=== PATIENT | female | born 1960 | race Caucasian/White ===

== ENCOUNTER 2017-05-04 09:49 | Emergency (ER) | payer OTHER, BC ==
[2017-05-04 10:20] LABS: #Basophils 0.1 thou/uL (0.0-0.2); #Eosinphils 0.3 thou/uL (0.0-0.7); #Lymphocytes 2.2 thou/uL (1.20-3.40); #Monocytes 0.4 thou/uL (0.11-0.59); #Neutrophils 3.6 thou/uL (1.40-6.50); %Basophils 0.9 % (0.0-1.0); %Eosinophils 4.8 % (0.0-10.0); %Lymphocytes 33.8 % (21.0-51.0); %Monocytes 5.9 % (0.0-10.0); Hematocrit 39.8 % (36.0-47.0); Mean Platelet Volume 7.5 fL (7.4-10.4); Red Blood Cell (RBC) Count 4.14 mill/uL (4.20-5.40); White Blood Cell (WBC) Count 6.6 thou/uL (4.8-10.8)
[2017-05-04 10:41] LABS: ALT (SGPT) 29 U/L (8-55); AST (SGOT) 22 U/L (5-34); Alkaline Phosphatase 80 U/L (40-150); Anion Gap 18 mmol/L (10-20); BUN (Urea Nitrogen) 10 mg/dL (9.8-20.1); Bilirubin, Total 0.5 mg/dL (0.2-1.2); Calc. Creatinine Clearance 0 mL/min (70-130); Calcium 9.1 mg/dL (7.8-10.44); Carbon Dioxide 21 mmol/L (22-29); Chloride 105 mmol/L (98-107); Estimated GFR-MDRD 90; Protein, Total 6.9 g/dL (6.0-8.3)
--- NOTE | 2017-05-04 11:49 | RAD ---
SINGLE VIEW OF THE CHEST: COMPARISON: None. HISTORY: Syncope. The patient hit head on a shelf at work. FINDINGS: Single view of the chest shows a normal sized cardiomediastinal silhouette. There is no evidence of consolidation, mass, or pleural effusion. The bones are unremarkable. IMPRESSION: No evidence of acute cardiopulmonary disease. POS: [facility]
--- NOTE | 2017-05-04 12:31 | CT ---
BRAIN CT WITHOUT IV CONTRAST: HISTORY: A 56-year-old female with a history of hypertension, diabetes, and high cholesterol. Hit her head w ith diffuse headache and vomiting. FINDINGS: No focal mass or midline shift. No intra- or extraaxial hemorrhage. Sinuses and mastoids are clear . IMPRESSION: No acute intracranial process. No mass or bleed. POS: [facility]
--- NOTE | 2017-05-04 13:32 | RAD ---
LEFT SHOULDER THREE VIEWS: 05/04/17 HISTORY: 56-year-old female with left shoulder pain after passing out. IMPRESSION: Mild degenerative changes. No fracture, dislocation, or other acute process. POS: [facility]
== END 2017-05-04 12:35 | disposition home or self-care (01) ==
LOC: ERS 09:49
DX: S06.9X0A Unspecified intracranial injury without loss of consciousness, initial encounter (principal); E11.9 Type 2 diabetes mellitus without complications; K21.9 Gastro-esophageal reflux disease without esophagitis; M25.512 Pain in left shoulder; E78.5 Hyperlipidemia, unspecified; I10 Essential (primary) hypertension; W22.03XA Walked into furniture, initial encounter
CPT/HCPCS: 36415; 70450; 71010; 80053; 85025; 93005; 96360; 96361

== ENCOUNTER 2018-08-22 08:21 | Outpatient (CLI) | payer BC ==
--- NOTE | 2018-08-22 09:28 | RAD ---
RIGHT SHOULDER THREE VIEWS: HISTORY: Right shoulder pain for six months. FINDINGS: Three views of the right shoulder show no evidence of acute fracture or dislocation. No degenerative changes are seen. There is a large subacromial spur. The visualized inferior thorax is unremarkabl e. IMPRESSION: Large subacromial spur. POS: [facility]
--- NOTE | 2018-08-22 09:29 | RAD ---
LEFT SHOULDER THREE VIEWS: HISTORY: Left shoulder pain for six months. COMPARISON: None. FINDINGS: Three views of the left shoulder show no evidence of acute fracture or dislocation. A small subacrom ial spur is seen. No degenerative changes are present. IMPRESSION: Small left subacromial spur. POS: [facility]
== END 2018-08-22 08:22 | disposition home or self-care (01) ==
LOC: SCSRAD 08:21
PROVIDERS: ATTEND Family Medicine
DX: M25.511 Pain in right shoulder (principal); M25.512 Pain in left shoulder; M75.92 Shoulder lesion, unspecified, left shoulder; M75.91 Shoulder lesion, unspecified, right shoulder

== ENCOUNTER 2018-09-17 08:42 | Outpatient (CLI) | payer BC ==
--- NOTE | 2018-09-17 12:26 | MRI ---
FNoncontrast enhanced MRI images cervical spine HISTORY: Bilateral shoulder and on pain for 6 months. There is a small area of ill-defined central spinal cord signal abnormality at the C4-5 cord level. F indings compatible with myelomalacia. C1-2: Unremarkable. C2-3: No significant degree of central or neural foraminal narrowing seen. C3-4: There is a broad-based disc osteophyte complex centrally compressing the thecal sac resulting i n mild thecal sac compression. The neural foramen are patent. C4-5: Disc desiccation is seen. There is a broad-based disc osteophyte complex centrally compressing the thecal sac resulting in moderate to severe thecal sac and moderate cord compression. Some myeloma lacic changes seen in the spinal cord at this level. There is severe bilateral C4-5 neural foraminal narrowing due to uncal vertebral hypertrophy. C5-6: Disc desiccation is seen. There is a broad-based disc osteophyte complex centrally and in the r ight paracentral region compressing the thecal sac resulting in thecal sac and cord compression. Ther e is moderate to severe right and moderate left-sided C5-6 neural foraminal narrowing due to osteophy te encroachment. C6-C7: Disc desiccation seen. There is a broad-based disc osteophyte complex centrally compressing th e thecal sac resulting in moderate thecal sac compression. Moderate to severe bilateral C6-7 neural f oraminal narrowing is seen due to uncal vertebral osteophyte hypertrophy C7-T1: Unremarkable. IMPRESSION: Multilevel central and neural foraminal narrowing as described above. The most significan t levels of stenosis appear to be C4-5 and C5-C6 with thecal sac and cord compression and bilateral neural foraminal narrowing. Transcribed Date/Time: 09/17/2018 12:26 PM
== END 2018-09-17 08:43 | disposition home or self-care (01) ==
LOC: SCSMRI 08:42
PROVIDERS: ATTEND Orthopaedic Surgery
DX: M50.30 Other cervical disc degeneration, unspecified cervical region (principal); M54.12 Radiculopathy, cervical region; M48.02 Spinal stenosis, cervical region
CPT/HCPCS: 72141

== ENCOUNTER 2018-10-08 12:36 | Outpatient (CLI) | payer BC ==
--- NOTE | 2018-10-08 13:11 | RAD ---
EXAM: 5 views of the cervical spine HISTORY: Bilateral finger numbness for a year and neck pain COMPARISON: MRI cervical spine 09/17/2018 FINDINGS: AP, lateral, flexion/extension, and open mouth odontoid views of the cervical spine shows n ormal height and alignment of the vertebral bodies without fracture or subluxation. The intervertebral discs are narrowed from C4/5 through C6/7 with large anterior osteophytes. Alignment i s unchanged with flexion and extension. No prevertebral soft tissue swelling is seen. IMPRESSION: Degenerative changes of the cervical spine without change with bending.
--- NOTE | 2018-10-08 13:57 | CT ---
EXAM: CT cervical spine PROVIDED CLINICAL HISTORY: Bilateral finger numbness for one year with pain in bilateral shoulders. Cervical radiculopathy. TECHNIQUE: Contiguous axial CT images are obtained through the cervical spine from the skull base to the level o f the T2 vertebral body. Sagittal and coronal reformatted images are provided. COMPARISON: MRI cervical spine 09/17/2018 FINDINGS: No fracture or subluxation is seen. There is straightening of the normal cervical lordotic curvature. Multilevel degenerative changes are seen throughout cervical spine better characterized on MRI on 09/17/2018. There is narrowing of the intervertebral disc spaces with posterior osteophyte formation seen at the C4-5, C5-6, and C6-7 level s with narrowing of the central spinal canal at these levels. Moderate to severe degrees of neural foraminal narrowing are also present at these levels. No prevertebral soft tissue swelling apparent. Visualized lung apices appear clear. IMPRESSION: Multilevel degenerative changes greatest at the C4-5, C5-C6, C6-7 levels, and these findings were als o seen on MRI exam on 09/17/2018.
== END 2018-10-08 12:37 | disposition home or self-care (01) ==
LOC: TBSIIMAG 12:36
PROVIDERS: ATTEND Surgery
DX: M47.22 Other spondylosis with radiculopathy, cervical region (principal)
CPT/HCPCS: 72050; 72125

== ENCOUNTER 2019-02-20 07:11 | Outpatient (CLI) | payer BC ==
[2019-02-20 12:18] LABS: PTT 25.2 SEC (22.9-36.1); Prothrombin Time 13.6 SEC (12.0-14.7)
[2019-02-20 12:23] LABS: Mean Corpuscular Volume 94.2 fL (78.0-98.0); Mean Platelet Volume 8.7 fL (7.4-10.4); Platelet Count 229 thou/uL (130-400); RBC Distribution Width 11.8 % (11.5-14.5); Red Blood Cell (RBC) Count 4.06 mill/uL (4.20-5.40); White Blood Cell (WBC) Count 7.2 thou/uL (4.8-10.8)
[2019-02-20 12:28] LABS: Anion Gap 13 mmol/L (10-20); BUN (Urea Nitrogen) 17 mg/dL (9.8-20.1); Calc. Creatinine Clearance 0 mL/min (70-130); Calcium 9.1 mg/dL (7.8-10.44); Carbon Dioxide 25 mmol/L (22-29); Chloride 106 mmol/L (98-107); Estimated GFR-MDRD 79; Glucose 80 mg/dL (70-105); Potassium 3.9 mmol/L (3.5-5.1); Sodium 140 mmol/L (136-145)
== END 2019-02-20 07:12 | disposition home or self-care (01) ==
LOC: LABBT 07:11
PROVIDERS: ATTEND Surgery
DX: Z01.818 Encounter for other preprocedural examination (principal); M47.12 Other spondylosis with myelopathy, cervical region
CPT/HCPCS: 80048; 85027; 85610; 85730; 93005; 93010

== ENCOUNTER 2019-02-24 05:49 | Inpatient (IN) | payer BC ==
[2019-02-20 11:24] VITALS: BMI 29.8
[2019-02-24] MEDS ORDERED: Sodium Chloride 0.9% 20 ML ONE (06:33)
[2019-02-24] MEDS ORDERED: Thrombin 5000 UNITS/5 ML VIAL ONE ×2 (06:33→11:02)
[2019-02-24] MEDS ORDERED: Bacitracin Zinc Ointment 30 gm TUBE ONE ×2 (06:33→06:55)
[2019-02-24] MEDS ORDERED: Fentanyl 100 MCG/2 ML VIAL ONE ×2 (06:48→13:50)
[2019-02-24] MEDS ORDERED: Ketamine 50 MG/ML (10ML VIAL) ONE (07:00)
[2019-02-24] MEDS ORDERED: HYDROmorphone 2 MG/ML VIAL ONE (07:50)
[2019-02-24] MEDS ORDERED: Ondansetron PF 4 MG/2 ML Vial ONE ×3 (08:10→17:53)
[2019-02-24] MEDS ORDERED: Phenylephrine HCL 10 MG/ML VIAL ONE (09:09)
[2019-02-24] MEDS ORDERED: Rocuronium Bromide 50 MG/5 ML VIAL ONE (10:38)
[2019-02-24] MEDS ORDERED: CEFAZOLIN 1 GM VIAL ONE (12:01)
[2019-02-24] MEDS ORDERED: traMADol HCl 50 MG TAB PO PRN (13:20)
[2019-02-24] MEDS ORDERED: Morphine 2 MG/ML SYRINGE SLOW IVP PRN (13:20)
[2019-02-24] MEDS ORDERED: Acetaminophen/Codeine 30-300mg Tablet PO PRN (13:20)
[2019-02-24] MEDS ORDERED: Acetaminophen 325 MG TAB PO PRN (13:20)
[2019-02-24] MEDS ORDERED: Promethazine HCl 25 MG/ML VIAL SLOW IVP PRN (13:23)
[2019-02-24] MEDS ORDERED: Ondansetron HCl/PF 4 MG/2 ML Vial IVP PRN (13:23)
[2019-02-24] MEDS ORDERED: HYDROmorphone 2 MG/ML VIAL SLOW IVP PRN (13:23)
[2019-02-24] MEDS ORDERED: Meperidine HCl/PF 25 MG/ML VIAL SLOW IVP PRN (13:23)
--- NOTE | 2019-02-24 13:48 | OP ---
DATE OF PROCEDURE: 02/24/2019 LOCATION: OR 12. WOUND CLASSIFICATION: Type 1 wound. STRATEGIC PARTNER DEVELOPMENT MANAGER: Jayce Zavala PA-C. 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 PROCEDURE PERFORMED: 1. Anterior C4-C5, C5-C6, C6-C7 diskectomies for decompression of the neural elements, placement of interbody spacer packed with local bone autograft obtained with same incision and allograft. 2. Anterior cervical plate and screw fixation, C4, C5, C6, and C7. 3. Use of operative microscope for microdissection. 4. C4, C5, C6, C7 laminectomies, partial facetectomies, and foraminotomies. 5. Posterior cervical C4, C5, C6, C7 lateral mass screw franco fixation. 6. Arthrodesis, posterolateral, C4, C5, C6, C7 with use of local bone autograft obtained with same incision allograft, autograft. DESCRIPTION OF PROCEDURE: After informed consent was obtained from the patient, the patient was brought to the OR. Proper patient, pause, and identification was carried out. She was placed under excellent general endotracheal anesthesia and positioned supine on the OR table. All appropriate points were padded. We identified the right anterior oblique lisa to allow for approach at C4, C5, C6, and C7 segment. This region was sterilely cleansed, prepared, and draped. Proper patient, pause, and identification were carried out. The wound was then opened with a combination of sharp, monopolar, and blunt dissection, proceeded lateral to the tracheoesophageal bundle, medial to the right carotid sheath. We identified the prevertebral layer of deep cervical fascia and the longus colli muscles. The localization then confirmed our area of interest. We then performed distraction at C4-C5. Microscope was brought in for microdissection. C4-C5 diskectomy was performed for decompression for neural elements. We then prepared the endplates with an interbody spacer and packed with graft, was placed at C4-C5. This was repeated at C5-C6, C6-C7 as well and the microscope was then removed. Anterior cervical plate and screw fixation were then occurred at C4, C5, C6, and C7 with final tightening. The wound was copiously irrigated and closed in anatomic layers. Following meticulous hemostasis, the wound over drain. The patient then was flipped prone following placement of Pierre Raegan site head. Cervical incision at C4, C5, C6, C7 was drawn out. Posteriorly, this region was sterilely cleansed, prepared, and draped. Proper patient, pause, and identification were carried out. The wound was then opened with a combination of sharp, monopolar, and blunt dissection. The C4, C5, C6, and C7 dorsal spines and lamina were exposed. Localization film confirmed our area of interest and performed C4, C5, C6, and C7 laminectomies, partial facetectomies, and foraminotomies with excellent decompression of common dural tube and nerve roots. We then placed screws in lateral masses at C4, C5, C6, and C7 segments. I now was pleased with our construct and alignment. Final tightening then occurred over rods. Copious irrigation occurred throughout. Decortication of posterolateral regions occurred for arthrodesis. We then packed graft in the posterolateral regions to initiate arthrodesis. The wound was copiously irrigated and closed in anatomic layers following hemostasis with placement of vancomycin powder. The patient was then emerged from anesthesia. Job ID: [id number]
[2019-02-24] MEDS ORDERED: HYDROmorphone 0.5 MG/0.5 ML SYRINGE ONE (14:09)
[2019-02-24] MEDS ORDERED: Lisinopril/Hydrochlorothiazide 20 mg/12.5 mg Tablet PO SCH (15:00)
[2019-02-24] MEDS: Sodium Chloride 0.9% 1,000 ML IV SCH (16:09)
[2019-02-24] MEDS: HYDROcodone/Acetaminophen 7.5/325 mg Tablet PO PRN ×2 (17:42→22:18)
[2019-02-24] MEDS ORDERED: Glycopyrrolate 0.2 MG/ML 5 ML SYRINGE ONE (17:53)
[2019-02-24] MEDS ORDERED: diphenhydrAMINE 50 MG/ML VIAL ONE (17:53)
[2019-02-24] MEDS ORDERED: Lidocaine 2% PF 5 ML VIAL ONE (17:53)
[2019-02-24] MEDS ORDERED: Dexamethasone 20 MG/5 ML VIAL ONE (17:53)
[2019-02-24] MEDS ORDERED: Ketorolac Tromethamine 30 MG/ML VIAL ONE (17:53)
[2019-02-24] MEDS ORDERED: ePHEDrine 50 MG/ML VIAL ONE (17:53)
[2019-02-24] MEDS ORDERED: PROPOFOL 200 MG/20 ML VIAL ONE (17:53)
[2019-02-24] MEDS ORDERED: PHENYLEPHRINE-NS 100 MCG/ML 10 ML SYRINGE ONE (17:53)
[2019-02-24] MEDS ORDERED: Rocuronium Bromide 10 MG/ML (10ML VIAL) ONE (17:53)
[2019-02-24] MEDS: Ondansetron PF 4 MG/2 ML Vial IVP PRN (18:30)
[2019-02-24] MEDS: Gabapentin 400 MG CAP PO SCH (20:05)
[2019-02-24] MEDS: CEFAZOLIN 2 GM in Premix Bag 1 BAG IVPB SCH (20:05)
[2019-02-24] MEDS: Atorvastatin Calcium 10 MG TAB PO SCH (20:05)
[2019-02-24] MEDS ORDERED: CEPHALEXIN PO SCH (21:00)
[2019-02-24] MEDS: tiZANidine HCl 4 MG TAB PO PRN (22:18)
[2019-02-25] MEDS: Sodium Chloride 0.9% 1,000 ML IV SCH ×2 (03:54→16:51)
[2019-02-25] MEDS: CEFAZOLIN 2 GM in Premix Bag 1 BAG IVPB SCH ×3 (04:41→20:11)
[2019-02-25] MEDS: HYDROcodone/Acetaminophen 7.5/325 mg Tablet PO PRN ×5 (04:46→23:42)
[2019-02-25 05:41] LABS: #Lymphocytes 2.3 thou/uL (1.20-3.40); #Monocytes 1.1 thou/uL (0.11-0.59); %Eosinophils 0.1 % (0.0-10.0); %Lymphocytes 22.1 % (21.0-51.0); %Monocytes 10.8 % (0.0-10.0); Hemoglobin 10.4 g/dL (12.0-16.0); Mean Corpuscular HGB CONC 33.4 g/dL (32.0-36.0); Mean Corpuscular Hemoglobin 31.8 pg (27.0-31.0); Mean Corpuscular Volume 95.1 fL (78.0-98.0); Mean Platelet Volume 8.7 fL (7.4-10.4); Platelet Count 204 thou/uL (130-400); RBC Distribution Width 11.8 % (11.5-14.5); Red Blood Cell (RBC) Count 3.26 mill/uL (4.20-5.40); White Blood Cell (WBC) Count 10.4 thou/uL (4.8-10.8)
[2019-02-25 06:02] LABS: Anion Gap 12 mmol/L (10-20); BUN (Urea Nitrogen) 14 mg/dL (9.8-20.1); Calc. Creatinine Clearance 104 mL/min (70-130); Calcium 8.4 mg/dL (7.8-10.44); Carbon Dioxide 27 mmol/L (22-29); Chloride 103 mmol/L (98-107); Estimated GFR-MDRD 87; Glucose 108 mg/dL (70-105); Potassium 3.8 mmol/L (3.5-5.1); Sodium 138 mmol/L (136-145)
[2019-02-25] MEDS: metFORMIN 500 MG TAB PO SCH (08:49)
--- NOTE | 2019-02-25 10:14 | PRG ---
DATE OF SERVICE: 02/25/2019 Ms. Hood is postoperative day 1 from anterior-posterior decompression and fusion. She is having different paresthesias in her hands and feet, but she states she feels her upper and lower extremities are "waking up." She is doing well. She needs a better fitting collar. She has had 20 mL output overnight, and we will plan to mobilize her. Job ID: [id number]
[2019-02-25] MEDS: Ondansetron PF 4 MG/2 ML Vial IVP PRN (12:42)
[2019-02-25] MEDS: tiZANidine HCl 4 MG TAB PO PRN (14:35)
[2019-02-25] MEDS: Atorvastatin Calcium 10 MG TAB PO SCH (20:12)
[2019-02-25] MEDS: Gabapentin 400 MG CAP PO SCH (20:12)
[2019-02-26] MEDS: CEFAZOLIN 2 GM in Premix Bag 1 BAG IVPB SCH ×2 (04:02→12:23)
[2019-02-26] MEDS: Sodium Chloride 0.9% 1,000 ML IV SCH ×2 (07:00→18:14)
[2019-02-26] MEDS: HYDROcodone/Acetaminophen 7.5/325 mg Tablet PO PRN ×4 (08:21→20:25)
[2019-02-26] MEDS: metFORMIN 500 MG TAB PO SCH (08:21)
--- NOTE | 2019-02-26 10:08 | PRG ---
DATE OF SERVICE: 02/26/2019 This is Jayce Zavala PA-C dictating a report for Clive Garcia MD. This is postoperative recheck. Ms. Hood is postoperative day #2, having undergone anterior cervical diskectomy and fusion and posterior cervical laminectomies and fusion. The patient complains of significant posterior neck pain today. She has been up walking. She does not complain much in the way of arm pain, and states she does feel more steady on her feet, when she can get out of bed secondary to posterior neck pain. We will work on pain control for her today. I have also discussed her case with Inpatient Rehab and she will likely do well there. I have updated her family at bedside. Her drain output was 5 mL. We will leave this in likely until tomorrow. She may be without her collar when she is in bed, and I have asked that come see her for a better fitting of [place] collar, though she does have a better fitting one currently, placed by the nurse. I would like her to remain on a full liquid diet. She remains with good strength in all the extremities and she is able to get herself from lying to sitting while in bed. Please call with any changes in the patient's neurologic status. Otherwise, the patient is progressing as expected. Job ID: [id number]
[2019-02-26 14:03] LABS: Bilirubin Negative (Negative); Blood, Urine Negative (Negative); Clarity Clear (Clear); Glucose, Urine (Dipstick) Normal (Negative); Leukocyte Negative Leu/uL (Negative); Nitrite Negative (Negative); Protein, Urine (Dipstick) Negative (Neg-Trace); Urobilinogen Normal mg/dL (Less than 2)
[2019-02-26] MEDS ORDERED: Ondansetron ODT 4 MG TAB PO PRN (15:10)
[2019-02-26] MEDS: Gabapentin 400 MG CAP PO SCH (20:26)
[2019-02-26] MEDS: Atorvastatin Calcium 10 MG TAB PO SCH (20:26)
[2019-02-26] MEDS: Cephalexin 250 MG CAP PO SCH (20:26)
[2019-02-27] MEDS: HYDROcodone/Acetaminophen 7.5/325 mg Tablet PO PRN ×3 (01:50→10:22)
[2019-02-27] MEDS: Cephalexin 250 MG CAP PO SCH ×2 (01:50→09:25)
[2019-02-27] MEDS ORDERED: Lisinopril/Hydrochlorothiazide 20 mg/12.5 mg Tablet PO SCH (09:00)
[2019-02-27 09:02] VITALS: BP 124/81; TEMP 98.2
[2019-02-27] MEDS: metFORMIN 500 MG TAB PO SCH (09:26)
[2019-02-27] MEDS: tiZANidine HCl 4 MG TAB PO PRN (09:26)
--- NOTE | 2019-02-27 11:18 | PRG ---
DATE OF SERVICE: 02/27/2019 Ms. Hood is 3 days out from anterior-posterior multilevel decompression fusion. She has had improvement in her myelopathy. She is mobilizing. She is using a walker. Her drain has been removed and her wounds are healing well. We went over both intra and postoperative issues. Neurologically, she is at her preoperative baseline, if not improved with her fine motor dexterity and hand intrinsic icer machine strength. She will be dismissed today. Job ID: [id number]
== END 2019-02-27 10:35 | disposition home or self-care (01) | DRG 454 ==
LOC: SDC 05:49 → SURG B 13:31
PROVIDERS: ADMIT Surgery; ATTEND Surgery
PROC: 0RG20A0 Fusion of 2 or more Cervical Vertebral Joints with Interbody Fusion Device, Anterior Approach, Anterior Column, Open Approach (ICD-10-PCS; principal; 2019-02-24)
PROC: 0RG2071 Fusion of 2 or more Cervical Vertebral Joints with Autologous Tissue Substitute, Posterior Approach, Posterior Column, Open Approach (ICD-10-PCS; 2019-02-24)
PROC: 0RB30ZZ Excision of Cervical Vertebral Disc, Open Approach (ICD-10-PCS; 2019-02-24)
DX: M48.02 Spinal stenosis, cervical region (principal); M47.12 Other spondylosis with myelopathy, cervical region
CPT/HCPCS: 36415; 76000; 80048; 81001; 81003; 85025; 87086; C1713; C1768; C1776; J0131; J0690; J1100; J1170; J1200; J1885; J2001; J2270; J2370; J2405; J2704; J3010; J3370; J3490; Q0162

== ENCOUNTER 2019-04-08 12:57 | Outpatient (CLI) | payer BC ==
--- NOTE | 2019-04-08 13:40 | RAD ---
CERVICAL SPINE SIX VIEWS: 04/08/2019 HISTORY: Evaluate cervical spine following surgery. FINDINGS: Open mouth odontoid view demonstrates a normal appearing dens and C1-C2 articulation. There is anteri or and posterior fusion hardware present. Hardware includes anterior diskectomy and fusion hardware a t C4-C5, C5-C6, and C6-C7. There is also posterior fusion hardware with bilateral C4, C5, C6 and C7 p edicle screws and vertically oriented interlocking rods. The neutral lateral examination demonstrates mild anterolisthesis of C3 on C4, measuring approximately 2-3 mm. This anterolisthesis of C3 on C4 m easures approximately 4 mm with flexion and is not seen on extension. Bilateral laminectomy changes a re present at the C4, C5 and C6 levels. IMPRESSION: Multilevel postoperative change within the cervical spine, as detailed above. There is mild anterolis thesis at C3-C4, most prominent upon flexion. POS: [facility]
== END 2019-04-08 12:58 | disposition home or self-care (01) ==
LOC: TBSIIMAG 12:57
PROVIDERS: ATTEND Surgery
DX: M48.02 Spinal stenosis, cervical region (principal); M43.12 Spondylolisthesis, cervical region; Z98.890 Other specified postprocedural states
CPT/HCPCS: 72050

== ENCOUNTER 2019-12-18 07:23 | Outpatient (CLI) | payer BC ==
[2019-12-18] MEDS ORDERED: ADENOSINE 60 MG/20 ML VIAL ONE (09:54)
--- NOTE | 2019-12-18 11:23 | NM ---
EXAM: CARDIAC SPECT HISTORY: Syncope and collapse. Tachycardia. Hypertension, diabetes and hypercholesterolemia, palpitat ions TECHNIQUE: A myocardial perfusion scan was performed using the single isotope 1 day protocol with khoi hnetium 99m sestamibi. [10 mCi] was injected intravenously for the rest exam followed by 30 mCi for the stress study. Pharmacologic stress with adenosine was monitored and interpreted by Akiko Vang, nurse practitioner FINDINGS: Homogeneous tracer distribution is seen in the myocardial segments on stress and rest image s without fixed or reversible defects. Gated SPECT LVEF: 59% Wall motion exam: Normal IMPRESSION: Normal myocardial perfusion scan
== END 2019-12-18 07:24 | disposition home or self-care (01) ==
LOC: NM 07:23
PROVIDERS: ATTEND Family Medicine
DX: R55 Syncope and collapse (principal); R00.0 Tachycardia, unspecified
CPT/HCPCS: 78452; 93017; A9500; J0153

== ENCOUNTER 2022-12-12 12:19 | Outpatient (CLI) | payer BC | END 2022-12-12 12:20 | disposition home or self-care (01) | LOC: SCSMRI 12:19 | PROVIDERS: ATTEND Family Medicine | DX: G45.9 Transient cerebral ischemic attack, unspecified (principal) | CPT/HCPCS: 70551 ==

== ENCOUNTER 2023-01-02 12:58 | Outpatient (CLI) | payer BC | END 2023-01-02 12:59 | disposition home or self-care (01) | PROVIDERS: ATTEND Family Medicine | DX: R00.0 Tachycardia, unspecified (principal) | CPT/HCPCS: 93225; 93226 ==

== ENCOUNTER 2023-04-01 13:30 | Outpatient (CLI) | payer BC | END 2023-04-01 13:31 | disposition home or self-care (01) | LOC: ULT 13:30 | PROVIDERS: ATTEND Psychiatry & Neurology Neurology | DX: G45.9 Transient cerebral ischemic attack, unspecified (principal); I08.1 Rheumatic disorders of both mitral and tricuspid valves | CPT/HCPCS: 93306; 93880 ==

== ENCOUNTER 2024-04-01 22:19 | Emergency (ER) | payer BC ==
[~2024-04-01 22:19] MED LIST: Iopamidol-370 76% 500 ML MDV (1 ML CHARGE) ONE
[2024-04-01] MEDS ORDERED: Boostrix 0.5 ML (Tdap) VIAL (>/=7 yrs of age) ONE (22:56)
[2024-04-01 22:59] LABS: #Basophils Less than 0.03 10x3/uL (0.0-0.2); %Basophils 0.2 % (0.0-1.0); %Eosinophils 3.1 % (0.0-10.0); %Lymphocytes 29.9 % (21.0-51.0); %Monocytes 7.2 % (0.0-10.0); %Neutrophils 59.1 % (42.0-75.0); Hemoglobin 10.6 g/dL (12.0-16.0); Mean Corpuscular HGB CONC 33.1 g/dL (32.0-36.0); Mean Corpuscular Hemoglobin 30.1 pg (27.0-31.0); Mean Corpuscular Volume 90.9 fL (78.0-98.0); Mean Platelet Volume 9.6 fL (7.4-10.4); Platelet Count 219 10x3/uL (130-400); RBC Distribution Width 13.8 % (11.5-14.5); Red Blood Cell (RBC) Count 3.52 mill/uL (4.20-5.40)
[2024-04-01] MEDS ORDERED: fentaNYL 50 mcg/mL 1 mL Vial ONE (23:01)
[2024-04-01 23:14] LABS: ALT (SGPT) 32 U/L (8-55); AST (SGOT) 36 U/L (5-34); Albumin 1.9 g/dL (3.4-4.8); Alkaline Phosphatase 90 U/L (40-110); Anion Gap 9 mmol/L (10-20); BUN (Urea Nitrogen) 15 mg/dL (9.8-20.1); Bilirubin, Total 0.4 mg/dL (0.2-1.2); Calc. Creatinine Clearance 0 mL/min (70-130); Calcium 7.4 mg/dL (7.8-10.44); Carbon Dioxide 24 mmol/L (23-31); Chloride 105 mmol/L (98-107); Estimated GFR 94; Globulin 2.3 g/dL (2.4-3.5); Glucose 101 mg/dL (80-115); Potassium 3.6 mmol/L (3.5-5.1); Protein, Total 4.2 g/dL (5.8-8.1); Sodium 134 mmol/L (136-145)
[2024-04-01 23:18] LABS: PTT 26.4 sec (22.9-36.1)
[2024-04-01 23:19] LABS: INR-International Normal Ratio 1.2; Prothrombin Time 15.1 sec (12.0-14.7)
[2024-04-01] MEDS ORDERED: Lidocaine 1% w/Epinephrine 1:100K 20 ML VIAL ONE (23:42)
[2024-04-02] MEDS ORDERED: Lidocaine 1% PF 5 ML VIAL ONE ×2 (00:16→00:18)
[2024-04-02] MEDS ORDERED: fentaNYL 50 mcg/mL 1 mL Vial ONE (00:29)
== END 2024-04-02 02:23 | disposition home or self-care (01) ==
LOC: ERS 22:19
DX: S62.612A Displaced fracture of proximal phalanx of right middle finger, initial encounter for closed fracture (principal); S62.614A Displaced fracture of proximal phalanx of right ring finger, initial encounter for closed fracture; S01.411A Laceration without foreign body of right cheek and temporomandibular area, initial encounter; M25.561 Pain in right knee; Z23 Encounter for immunization; V40.5XXA Car driver injured in collision with pedestrian or animal in traffic accident, initial encounter
CPT/HCPCS: 36415; 70450; 70486; 71260; 72125; 74177; 80053; 85025; 85610; 85730; 90471; 90715; 96374; 96376; G0390; J3010; Q9967

== ENCOUNTER 2024-04-22 12:33 | Inpatient (IN) | payer BC ==
[2024-04-22] MEDS ORDERED: Famotidine/PF 20 mg/2ml Vial ONE (13:55)
[2024-04-22] MEDS ORDERED: Bacitracin Zinc Ointment 30 gm TUBE ONE (14:00)
[2024-04-22] MEDS ORDERED: Bupivacaine PF 0.5% 30 ML VIAL ONE (14:00)
[2024-04-22 14:01] LABS: #Basophils 0.05 10x3/uL (0.0-0.2); %Basophils 0.3 % (0.0-1.0); %Eosinophils 1.2 % (0.0-10.0); %Lymphocytes 14.6 % (21.0-51.0); %Neutrophils 78.2 % (42.0-75.0); Hematocrit 36.7 % (36.0-47.0); Hemoglobin 12.6 g/dL (12.0-16.0); Mean Corpuscular HGB CONC 34.3 g/dL (32.0-36.0); Mean Corpuscular Hemoglobin 29.8 pg (27.0-31.0); Mean Corpuscular Volume 86.8 fL (78.0-98.0); Mean Platelet Volume 9.6 fL (7.4-10.4); Platelet Count 437 10x3/uL (130-400); RBC Distribution Width 15.8 % (11.5-14.5); Red Blood Cell (RBC) Count 4.23 mill/uL (4.20-5.40)
[2024-04-22] MEDS ORDERED: Rocuronium Bromide 10 MG/ML (10ML VIAL) ONE (14:07)
[2024-04-22] MEDS ORDERED: Midazolam HCl 2 mg/2 ml Vial ONE (14:07)
[2024-04-22] MEDS ORDERED: fentaNYL PF 100 MCG/2 ML SYRINGE ONE (14:07)
[2024-04-22] MEDS ORDERED: Lidocaine 1% PF 5 ML VIAL ONE (14:07)
[2024-04-22] MEDS ORDERED: PROPOFOL 0 ML ONE (14:07)
[2024-04-22] MEDS ORDERED: CEFAZOLIN 2 GM VIAL ONE (14:08)
[2024-04-22 14:58] LABS: Anion Gap 14 mmol/L (10-20); BUN (Urea Nitrogen) 9 mg/dL (9.8-20.1); Calc. Creatinine Clearance 0 mL/min (70-130); Calcium 8.2 mg/dL (7.8-10.44); Carbon Dioxide 24 mmol/L (23-31); Chloride 98 mmol/L (98-107); Estimated GFR 95; Glucose 105 mg/dL (80-115); Potassium 2.9 mmol/L (3.5-5.1); Sodium 133 mmol/L (136-145)
[2024-04-22 15:13] LABS: Bilirubin Negative (Negative); Blood, Urine Negative (Negative); Clarity Clear (Clear); Glucose, Urine (Dipstick) Normal (Negative); Ketone, Urine Negative (Negative); Leukocyte Negative Leu/uL (Negative); Nitrite Negative (Negative); Protein, Urine (Dipstick) Negative (Neg-Trace); Specific Gravity, Urine 1.004 (1.002-1.036); Urobilinogen Normal mg/dL (Less than 2)
[2024-04-22 15:36] LABS: INR-International Normal Ratio 1.1; PTT 25.6 sec (22.9-36.1); Prothrombin Time 14.2 sec (12.0-14.7)
[2024-04-22 15:38] LABS: D-Dimer Test 0.95 mcg/mL (0.27-0.43)
[2024-04-22 17:51] VITALS: BMI 29.5
[2024-04-22] MEDS ORDERED: Ondansetron ODT 4 MG TAB PO PRN (18:05)
[2024-04-22] MEDS ORDERED: Insulin Lispro 100 UNIT/ML 10 ML VIAL SC PRN ×2 (18:05)
[2024-04-22] MEDS ORDERED: Acetaminophen 650 MG Suppository PR PRN (18:05)
[2024-04-22] MEDS ORDERED: Ondansetron PF 4 MG/2 ML Vial IVP PRN (18:05)
[2024-04-22] MEDS ORDERED: Acetaminophen 325 MG TAB PO PRN (18:05)
[2024-04-22] MEDS ORDERED: Senokot S 8.6-50 MG TAB PO PRN (18:05)
[2024-04-22] MEDS ORDERED: Dextrose 50% Abboject 50 ML SYRINGE SLOW IVP PRN (18:05)
[2024-04-22] MEDS ORDERED: Glucagon 1 MG/ML KIT IM PRN (18:05)
[2024-04-22] MEDS ORDERED: Dextrose 5% in Water 1,000 ML IV PRN (18:05)
[2024-04-22] MEDS ORDERED: hydrOXYzine 25 MG TAB PO PRN (18:14)
[2024-04-22] MEDS ORDERED: Electrolyte Replacement Protocol 1 EACH FS SCH (18:15)
[2024-04-22] MEDS ORDERED: Methocarbamol 500 MG TAB PO PRN (18:16)
[2024-04-22] MEDS ORDERED: Potassium Chloride 20 MEQ TAB PO SCH (18:30)
[2024-04-22 18:51] LABS: Magnesium 1.6 mg/dL (1.6-2.6)
[2024-04-22] MEDS: Atorvastatin Calcium 40 MG TAB PO SCH (21:06)
[2024-04-22] MEDS: Potassium Chloride 20 MEQ TAB PO SCH (21:07)
[2024-04-22] MEDS: Magnesium 2 GM/50 ML(in water) 2 GM in Premix 1 BAG IVPB SCH (21:07)
[2024-04-22] MEDS: Nitrofurantoin Macrocrystal 50 MG CAP PO SCH (21:07)
[2024-04-22] MEDS: Amitriptyline HCl 10 MG TAB PO SCH (21:18)
[2024-04-22] MEDS: Furosemide 20 MG (2 mL) VIAL SLOW IVP SCH (21:27)
[2024-04-22] MEDS: metFORMIN 500 MG TAB PO SCH (22:53)
[2024-04-22] MEDS: Acetaminophen/Codeine 30-300mg Tablet PO PRN (23:55)
[2024-04-23 04:58] LABS: #Basophils 0.05 10x3/uL (0.0-0.2); %Basophils 0.5 % (0.0-1.0); %Eosinophils 3.2 % (0.0-10.0); %Lymphocytes 22.2 % (21.0-51.0); %Monocytes 7.9 % (0.0-10.0); %Neutrophils 65.5 % (42.0-75.0); Hematocrit 34.8 % (36.0-47.0); Hemoglobin 11.4 g/dL (12.0-16.0); Mean Corpuscular HGB CONC 32.8 g/dL (32.0-36.0); Mean Corpuscular Hemoglobin 29.8 pg (27.0-31.0); Mean Corpuscular Volume 90.9 fL (78.0-98.0); Mean Platelet Volume 9.5 fL (7.4-10.4); Platelet Count 361 10x3/uL (130-400); RBC Distribution Width 15.9 % (11.5-14.5); Red Blood Cell (RBC) Count 3.83 mill/uL (4.20-5.40)
[2024-04-23 05:15] LABS: ALT (SGPT) 25 U/L (8-55); AST (SGOT) 33 U/L (5-34); Albumin 2.2 g/dL (3.4-4.8); Alkaline Phosphatase 85 U/L (40-110); Anion Gap 15 mmol/L (10-20); BUN (Urea Nitrogen) 7 mg/dL (9.8-20.1); Bilirubin, Total 0.6 mg/dL (0.2-1.2); Calc. Creatinine Clearance 99 mL/min (70-130); Calcium 7.8 mg/dL (7.8-10.44); Carbon Dioxide 23 mmol/L (23-31); Chloride 106 mmol/L (98-107); Estimated GFR 98; Globulin 2.9 g/dL (2.4-3.5); Glucose 93 mg/dL (80-115); Potassium 3.6 mmol/L (3.5-5.1); Protein, Total 5.1 g/dL (5.8-8.1); Sodium 140 mmol/L (136-145)
[2024-04-23] MEDS ORDERED: Nitrofurantoin Macrocrystal 50 MG CAP PO SCH (09:00)
[2024-04-23] MEDS: metFORMIN 500 MG TAB PO SCH (10:07)
[2024-04-23] MEDS: Magnesium Oxide 250 MG TAB PO SCH (10:07)
[2024-04-23] MEDS: Enoxaparin 40 MG (0.4 mL) SYRINGE SC SCH (10:07)
[2024-04-23] MEDS: Ferrous Sulfate 325 MG TAB PO SCH (10:08)
[2024-04-23] MEDS: Oxybutynin 5 MG TAB PO SCH (10:08)
[2024-04-23] MEDS: Pantoprazole DR 40 MG TAB PO SCH (10:08)
[2024-04-23] MEDS: Tamsulosin HCl 0.4 MG CAP PO SCH (10:08)
[2024-04-23 11:23] LABS: SARS-CoV-2 N1 Negative; SARS-CoV-2 N2 Negative; SARS-CoV-2 RNAse P1 Positive
[2024-04-23 12:01] VITALS: BMI 29.3
[2024-04-23] MEDS: Albumin 25% 25 GM (100 mL) BOT IVPB SCH (13:34)
[2024-04-23] MEDS: Furosemide 20 MG TAB PO SCH (13:34)
[2024-04-23] MEDS: Potassium Chloride 20 MEQ TAB PO SCH (13:38)
[2024-04-23] MEDS ORDERED: Iopamidol-370 76% 500 ML MDV (1 ML CHARGE) ONE (13:39)
[2024-04-23] MEDS: FLU (Fluarix Triv) TS24-25(6MOS UP)/PF 45 MCG/0.5 ML Syringe IM ONE (13:49)
[2024-04-23] MEDS: cefTRIAXone\\ROCEPHIN 2 GM in Sodium Chloride 0.9% 100 ML IVPB SCH (17:12)
[2024-04-23] MEDS: Doxycycline 100 MG CAP PO SCH (20:58)
[2024-04-24 05:34] LABS: #Basophils 0.06 10x3/uL (0.0-0.2); %Basophils 0.8 % (0.0-1.0); %Eosinophils 6.4 % (0.0-10.0); %Lymphocytes 29.1 % (21.0-51.0); %Monocytes 8.3 % (0.0-10.0); %Neutrophils 54.9 % (42.0-75.0); Hematocrit 28.6 % (36.0-47.0); Hemoglobin 9.3 g/dL (12.0-16.0); Mean Corpuscular HGB CONC 32.5 g/dL (32.0-36.0); Mean Corpuscular Hemoglobin 30.2 pg (27.0-31.0); Mean Corpuscular Volume 92.9 fL (78.0-98.0); Mean Platelet Volume 9.7 fL (7.4-10.4); Platelet Count 267 10x3/uL (130-400); RBC Distribution Width 16.5 % (11.5-14.5); Red Blood Cell (RBC) Count 3.08 mill/uL (4.20-5.40)
[2024-04-24 05:56] LABS: Anion Gap 15 mmol/L (10-20); BUN (Urea Nitrogen) 6 mg/dL (9.8-20.1); Calc. Creatinine Clearance 107 mL/min (70-130); Calcium 8.2 mg/dL (7.8-10.44); Carbon Dioxide 19 mmol/L (23-31); Chloride 113 mmol/L (98-107); Estimated GFR 100; Glucose 86 mg/dL (80-115); Magnesium 1.9 mg/dL (1.6-2.6); Potassium 3.8 mmol/L (3.5-5.1); Sodium 143 mmol/L (136-145)
[2024-04-24] MEDS: Magnesium 2 GM/50 ML(in water) 2 GM in Premix 1 BAG IVPB SCH (09:35)
[2024-04-24 16:29] VITALS: BP 105/75; TEMP 97.3
== END 2024-04-24 16:15 | disposition home or self-care (01) | DRG 193 ==
LOC: SDC 12:33 → 2NO 17:53
PROVIDERS: ADMIT Hospitalist; ATTEND Internal Medicine
DX: J18.9 Pneumonia, unspecified organism (principal); K72.00 Acute and subacute hepatic failure without coma; E44.0 Moderate protein-calorie malnutrition; I50.32 Chronic diastolic (congestive) heart failure; E87.1 Hypo-osmolality and hyponatremia; S62.614A Displaced fracture of proximal phalanx of right ring finger, initial encounter for closed fracture; S62.612A Displaced fracture of proximal phalanx of right middle finger, initial encounter for closed fracture; E11.9 Type 2 diabetes mellitus without complications; I11.0 Hypertensive heart disease with heart failure; Z95.810 Presence of automatic (implantable) cardiac defibrillator; Z98.890 Other specified postprocedural states; E87.6 Hypokalemia; R53.81 Other malaise; Z68.28 Body mass index [BMI] 28.0-28.9, adult; E83.42 Hypomagnesemia; D53.9 Nutritional anemia, unspecified; R77.0 Abnormality of albumin; R93.5 Abnormal findings on diagnostic imaging of other abdominal regions, including retroperitoneum; K76.9 Liver disease, unspecified; D17.71 Benign lipomatous neoplasm of kidney; N28.1 Cyst of kidney, acquired
CPT/HCPCS: 36415; 36416; 71046; 71275; 74178; 80048; 80053; 81003; 83735; 83880; 84145; 85025; 85379; 85610; 85730; 86141; 87040; 87635; 93005; 93010; 93306; 93970; J0665; J0696; J1650; J1940; J2250; J2704; J3475; J3490; P9047; Q9967

== ENCOUNTER 2024-05-05 11:44 | Day surgery (SDC) | payer OTHER ==
[2024-05-04 14:36] VITALS: BMI 28.9
[2024-05-05 14:03] LABS: #Basophils 0.05 10x3/uL (0.0-0.2); %Basophils 0.6 % (0.0-1.0); %Eosinophils 8.6 % (0.0-10.0); %Lymphocytes 25.2 % (21.0-51.0); %Monocytes 10.2 % (0.0-10.0); %Neutrophils 55.1 % (42.0-75.0); Hematocrit 32.1 % (36.0-47.0); Hemoglobin 10.4 g/dL (12.0-16.0); Mean Corpuscular HGB CONC 32.4 g/dL (32.0-36.0); Mean Corpuscular Hemoglobin 29.7 pg (27.0-31.0); Mean Corpuscular Volume 91.7 fL (78.0-98.0); Mean Platelet Volume 10.1 fL (7.4-10.4); Platelet Count 279 10x3/uL (130-400); RBC Distribution Width 17.2 % (11.5-14.5)
[2024-05-05] MEDS ORDERED: Lidocaine 2% PF 5 ML VIAL ONE (14:13)
[2024-05-05] MEDS ORDERED: PROPOFOL 20 ML ONE ×2 (14:14→16:28)
[2024-05-05 14:15] LABS: Anion Gap 10 mmol/L (10-20); BUN (Urea Nitrogen) 7 mg/dL (9.8-20.1); Calc. Creatinine Clearance 109 mL/min (70-130); Calcium 8.3 mg/dL (7.8-10.44); Carbon Dioxide 25 mmol/L (23-31); Chloride 108 mmol/L (98-107); Estimated GFR 101; Glucose 92 mg/dL (80-115); Potassium 3.4 mmol/L (3.5-5.1); Sodium 140 mmol/L (136-145)
[2024-05-05] MEDS ORDERED: fentaNYL PF 100 MCG/2 ML SYRINGE ONE ×2 (14:17→16:29)
[2024-05-05] MEDS ORDERED: CEFAZOLIN 2 GM VIAL ONE (14:38)
[2024-05-05] MEDS ORDERED: Bupivacaine PF 0.5% 30 ML VIAL ONE (14:39)
[2024-05-05] MEDS ORDERED: Ondansetron PF 4 MG/2 ML Vial ONE (14:40)
[2024-05-05] MEDS ORDERED: Dexamethasone 4 mg/ml Vial ONE (14:40)
[2024-05-05] MEDS ORDERED: ePHEDrine Sulfate 50 MG/10 ML VIAL ONE (15:15)
[2024-05-05] MEDS ORDERED: PHENYLEPHRINE-NS 100 MCG/ML 10 ML SYRINGE ONE (15:22)
[2024-05-05] MEDS ORDERED: Bacitracin Zinc Ointment 30 gm TUBE ONE (17:34)
== END 2024-05-05 19:30 | disposition home or self-care (01) ==
LOC: SDC 11:44
PROVIDERS: ATTEND Orthopaedic Surgery Hand Surgery
PROC: 0PST04Z Reposition Right Finger Phalanx with Internal Fixation Device, Open Approach (ICD-10-PCS; principal; 2024-05-05)
DX: S62.614P Displaced fracture of proximal phalanx of right ring finger, subsequent encounter for fracture with malunion (principal); S62.612 Displaced fracture of proximal phalanx of right middle finger; I10 Essential (primary) hypertension; E78.5 Hyperlipidemia, unspecified; K21.9 Gastro-esophageal reflux disease without esophagitis; R73.03 Prediabetes; Z78.0 Asymptomatic menopausal state; Z79.82 Long term (current) use of aspirin; Z79.899 Other long term (current) drug therapy; W19.XXXD Unspecified fall, subsequent encounter
CPT/HCPCS: 80048; 85025; 93005; 93010; A6223; C1713; C1889; C1894; J0665; J1100; J2405; J2704